=== PATIENT | female | born 1990 | race Two or more races ===

== ENCOUNTER → 2019-01-28 | Outpatient (CLI) | payer OTHER ==
--- NOTE | 2019-01-29 07:43 | REP ---
CHEST, TWO VIEWS: There is no evidence of acute infiltrate. No pleural effusion is seen. The heart is normal in size. The mediastinal silhouette is unremarkable. The visualized osseous structures are intact. IMPRESSION: No acute pulmonary disease. Electronically Signed by Dm Bryant MD 01/29/2019 10:11 A
== END ==
LOC: M LRY 16:36
PROVIDERS: ATTEND Nurse Practitioner Family
DX: R07.9 Chest pain, unspecified (principal)
CPT/HCPCS: 71046; G0463

== ENCOUNTER → 2020-08-11 | Outpatient (REF) | payer OTHER | LOC: M SFHCWAGY 17:10 | PROVIDERS: ATTEND Advanced Practice Midwife | DX: N93.0 Postcoital and contact bleeding (principal) | CPT/HCPCS: G0123; G0463 ==

== ENCOUNTER → 2020-09-05 | Outpatient (CLI) | payer OTHER ==
--- NOTE | 2020-09-05 11:45 | REP ---
INDICATION: INTERMENSTRUAL AND POSTCOITAL BLEEDING COMPARISON: None. TECHNIQUE: Transabdominal pelvic ultrasound followed by transvaginal examination for better evaluation of the endometrium and adnexa with color Doppler evaluation of the ovaries. FINDINGS: Bladder is unremarkable and measures 7.1 x 5.1 x 1.6 cm. Normal retroverted uterus measures 8.0 x 4.7 x 6.0 cm. The endometrial complex measures 9 mm thickness. No discrete uterine or endometrial abnormalities are appreciated. Bilateral ovaries are normal in appearance and vascularity without evidence for torsion. Right ovary measures 2.2 x 2.2 x 1.6 cm; R I = 0.52. Left ovary measures 2.9 x 2.8 x 2.2 cm with 2.3 x 1.6 x 1.8 cm likely dominant follicle; R I = 0.50. Trace free fluid in the pelvis likely physiologic. No adnexal mass lesion. IMPRESSION: Essentially normal pelvic ultrasound. Presumed dominant follicle in the left ovary. <Electronically signed by Heriberto Brar > 09/05/20 [id number]
== END ==
LOC: M WHC 09:51
PROVIDERS: ATTEND Advanced Practice Midwife
DX: N93.0 Postcoital and contact bleeding (principal)

== ENCOUNTER → 2020-09-22 | Outpatient (REF) | payer OTHER ==
[2020-09-22 14:42] LABS: THYROID STIMULATING HORMONE 0.25 uIU/ML (0.358-3.740)
== END ==
LOC: M PLALAB 11:07
PROVIDERS: ATTEND Advanced Practice Midwife
DX: N92.3 Ovulation bleeding (principal)
CPT/HCPCS: 36415; 84436; 84443; 84479; G0463

== ENCOUNTER → 2023-05-07 | Outpatient (CLI) | payer OTHER | LOC: M WHC 14:49 | PROVIDERS: ATTEND Obstetrics & Gynecology | DX: N93.9 Abnormal uterine and vaginal bleeding, unspecified (principal); N88.8 Other specified noninflammatory disorders of cervix uteri ==

== ENCOUNTER 2023-06-10 06:25 | Day surgery (SDC) | payer OTHER ==
[~2023-06-10] VITALS: Ht 157.5 cm; Wt 70.9 kg
[~2023-06-10 06:25] MED LIST: ADV250INH; MONT10TA97 PO
[2023-06-10] MEDS ORDERED: LR 1,000 ML IV SCH ×2 (06:50→09:25)
[2023-06-10] MEDS ORDERED: fentaNYL 100 MCG/2 ML INJECTION As Ordered ONE (07:14)
[2023-06-10] MEDS ORDERED: propofoL 200 MG/20 ML VIAL As Ordered ONE (07:14)
[2023-06-10] MEDS ORDERED: MIDAZOLAM INJ 2MG/2ML VIAL As Ordered ONE (07:14)
[2023-06-10] MEDS ORDERED: LIDOCAINE 2% 100MG/5ML SDV (FOR ANES.) As Ordered ONE (07:14)
[2023-06-10] MEDS ORDERED: ROCURONIUM BROMIDE 50MG/5ML VIAL As Ordered ONE (07:14)
[2023-06-10 07:32] LABS: HEMATOCRIT 35.8 % (36.0-47.0); HEMOGLOBIN 12.3 g/dl (12.0-15.5); MEAN CORPUSCULAR HEMOGLOBIN 30.2 pg (27.0-33.0); MEAN CORPUSCULAR HGB CONC 34.4 g/dl (32.0-36.5); PLATELET COUNT, AUTOMATED 325 10^3/uL (150-450); RED BLOOD COUNT 4.07 10^6/uL (4.00-5.40); WHITE BLOOD COUNT 6.7 10^3/uL (4.0-10.0)
[2023-06-10] MEDS ORDERED: ceFAZolin 2 GM/D5W 50 ML IV BAG As Ordered ONE (07:39)
[2023-06-10] MEDS ORDERED: ACETAMINOPHEN 1000MG 100ML IV BAG As Ordered ONE (08:26)
[2023-06-10] MEDS ORDERED: SUGAMMADEX SODIUM 500 MG/5 ML VIAL (BRIDION) As Ordered ONE (08:27)
[2023-06-10] MEDS ORDERED: ONDANSETRON 4MG 2ML VIAL As Ordered ONE (08:27)
[2023-06-10] MEDS ORDERED: KETOROLAC 60MG 2ML VIAL As Ordered ONE (08:27)
[2023-06-10] MEDS ORDERED: METOCLOPRAMIDE INJ 10MG/2ML VIAL As Ordered ONE (08:27)
[2023-06-10] MEDS ORDERED: HYDROmorphone HCL 2MG/ML 1ML VIAL As Ordered ONE (08:29)
[2023-06-10] MEDS ORDERED: METHYLENE BLUE 0.5% (5MG/ML) 10 ML AMP (PROVAYBLUE) As Ordered ONE (08:47)
[2023-06-10] MEDS ORDERED: HYDROMORPHONE HCL 0.5 MG/ 0.5 ML SYRINGE IV PRN (09:25)
[2023-06-10] MEDS ORDERED: ONDANSETRON 4MG 2ML VIAL IV PRN (09:25)
[2023-06-10] MEDS ORDERED: fentaNYL 100 MCG/2 ML INJECTION IV PRN (09:25)
[2023-06-10] MEDS ORDERED: oxyCODONE 5MG TAB PO PRN (09:25)
[2023-06-10 12:30] VITALS: BP 109/62; TEMP 97.9; O2SAT 98
[2023-06-10] MEDS ORDERED: KETOROLAC 30 MG/ML 1ML VIAL IV SCH (15:00)
== END 2023-06-10 13:50 | disposition home or self-care (01) ==
LOC: M SDC 06:25
PROVIDERS: ATTEND Obstetrics & Gynecology
DX: N93.9 Abnormal uterine and vaginal bleeding, unspecified (principal); E05.90 Thyrotoxicosis, unspecified without thyrotoxic crisis or storm; J45.909 Unspecified asthma, uncomplicated; Z79.51 Long term (current) use of inhaled steroids; Z79.899 Other long term (current) drug therapy
CPT/HCPCS: 36415; 58571; 81025; 85027; 86850; 86900; 86901; 88307; J0131; J0665; J0690; J1100; J1170; J1885; J2250; J2405; J2765; J3010; Q9968; S2900

== ENCOUNTER → 2023-08-29 | Outpatient (REF) | payer OTHER | LOC: M PLALAB 14:14 | PROVIDERS: ATTEND Obstetrics & Gynecology | DX: R30.0 Dysuria (principal) ==